=== PATIENT | female | born 1995 | race African-American/Black ===

== ENCOUNTER 2024-01-15 13:08 | Emergency (ER) | payer OTHER ==
[~2024-01-15] VITALS: Ht 160 cm; Wt 60.0 kg
[2024-01-15 13:09] VITALS: O2SAT 99
[2024-01-15] MEDS: SODIUM CHLORIDE 0.9% 1,000 ML IV ONE (13:46)
[2024-01-15 14:16] LABS: BASOPHILS % 1.2 % (0.0-2.0); EOSINOPHILS % 6.6 % (0.0-5.0); HEMATOCRIT. 35.6 % (36.0-48.0); HEMOGLOBIN. 11.3 g/dL (12.0-16.0); LYMPHOCYTES % 38.5 % (20.0-50.0); MEAN CORPUSCULAR HEMOGLOBIN 29.8 pg (28.0-32.0); MEAN CORPUSCULAR HGB CONC 31.7 g/dL (31.0-37.0); MEAN CORPUSCULAR VOLUME 94.3 fL (81.0-99.0); MEAN PLATELET VOLUME 7.8 fl (7.4-10.4); MONOCYTES % 12.2 % (2.0-8.0); NEUTROPHILS % 41.5 % (40.0-76.0); PLATELET 225 x1000/uL (130-400); RED BLOOD CELL COUNT 3.78 mill/uL (4.2-5.4); RED CELL DISTRIBUTION WIDTH 15.2 % (11.6-14.6); WHITE BLOOD COUNT 3.9 x1000/uL (4.5-11.0)
[2024-01-15 14:24] LABS: CARBON DIOXIDE 24 mEq/L (21-32); CHLORIDE 102 mEq/L (98-107); POTASSIUM 3.7 mEq/L (3.5-5.1); SODIUM 139 mEq/L (136-145)
[2024-01-15 14:25] LABS: CALCIUM 8.8 mg/dL (8.7-10.4)
[2024-01-15 14:26] LABS: HCG SCREEN NEGATIVE
[2024-01-15 14:29] LABS: CREATININE 0.7 mg/dL (0.6-1.0); GLUCOSE 71 mg/dL (70-105)
[2024-01-15 14:30] LABS: ETHANOL BLOOD 119 mg/dL (<10)
[2024-01-15 14:31] LABS: ACETAMINOPHEN < 2 ug/mL (10-30); AMMONIA 42 uMol/L (<32)
[2024-01-15 14:32] LABS: CREATINE KINASE 254 IU/L (34-145)
[2024-01-15 14:33] LABS: UREA NITROGEN BLOOD < 5 mg/dL (9-23)
[2024-01-15] MEDS ORDERED: DOXY100C5 MT (15:08)
[2024-01-15] MEDS: CEFTRIAXONE SODIUM 500MG VIAL IM ONE (15:15)
[2024-01-15] MEDS: CHLORDIAZEPOXIDE 10MG CAPSULE PO ONE (16:53)
[2024-01-15 17:02] VITALS: BP 120/86; PULSE 72; RESP 16; TEMP 97.9
== END 2024-01-15 17:06 | disposition home or self-care (01) ==
LOC: ER 13:26
DX: T51.0X1A Toxic effect of ethanol, accidental (unintentional), initial encounter (principal); A64 Unspecified sexually transmitted disease; R56.9 Unspecified convulsions; X58.XXXA Exposure to other specified factors, initial encounter
CPT/HCPCS: 80048; 80307; 80329; 80320; 82140; 82550; 84703; 85025; 36415; 96360; 96372; 99283; J0696; J7030; Z7610 ×2; G0480

== ENCOUNTER 2025-04-28 18:30 | Emergency (ER) | payer MEDICAID ==
[~2025-04-28] VITALS: Ht 162.6 cm; Wt 50.0 kg
[~2025-04-28 18:30] MED LIST: DOXY100C5 MT
[2025-04-28 18:36] VITALS: O2SAT 99
[2025-04-28 19:04] VITALS: TEMP 37.1
[2025-04-28] MEDS: ONDANSETRON 4MG ODT PO ONE (20:47)
[2025-04-28] MEDS: LORAZEPAM 1MG TABLET PO ONE (20:47)
[2025-04-28 22:20] VITALS: BP 113/75; PULSE 90; RESP 23; O2SAT 99
== END 2025-04-28 22:34 ==
LOC: ER 18:30
DX: F10.90 Alcohol use, unspecified, uncomplicated (principal); F41.9 Anxiety disorder, unspecified; Z79.899 Other long term (current) drug therapy; Z65.3 Problems related to other legal circumstances
CPT/HCPCS: 99283; 81025; Q0162